=== PATIENT | female | born 1955 | race Caucasian/White ===

== ENCOUNTER 2020-12-07 19:21 | Emergency (ER) | payer OTHER ==
[~2020-12-07] VITALS: Ht 162.6 cm; Wt 136.1 kg
[2020-12-07] MEDS ORDERED: IRBESARTAN-HCT1 EAC1 PO (19:44)
[2020-12-07] MEDS ORDERED: METFORMIN HCL1000 M2 PO (19:44)
[2020-12-07] MEDS ORDERED: CARVEDILOL ER40 MG PO (19:44)
[2020-12-07] MEDS ORDERED: LIPITOR40 M1 PO (19:44)
[2020-12-07] MEDS ORDERED: SINGULAIR10 MG PO (19:45)
[2020-12-08] MEDS ORDERED: MOXIFLOXACIN H400 MG PO (00:11)
[2020-12-08] MEDS ORDERED: MUCINEX DM ER1 EAC1 PO (00:11)
== END 2020-12-08 00:24 | disposition home or self-care (01) ==
LOC: ER 19:21
DX: J45.901 Unspecified asthma with (acute) exacerbation (principal); R09.02 Hypoxemia; Z03.818 Encounter for observation for suspected exposure to other biological agents ruled out

== ENCOUNTER 2020-12-09 13:45 | Inpatient (IN) | payer OTHER ==
[~2020-12-09] VITALS: Ht 162.6 cm; Wt 136.1 kg
[~2020-12-09 13:45] MED LIST: CARVEDILOL ER40 MG PO; IRBESARTAN-HCT1 EAC1 PO; LIPITOR40 M1 PO; METFORMIN HCL1000 M2 PO; MOXIFLOXACIN H400 MG PO; MUCINEX DM ER1 EAC1 PO; SINGULAIR10 MG PO
[2020-12-15] MEDS ORDERED: XOPENEX0.63 MG/3 IH (09:26)
[2020-12-15] MEDS ORDERED: LIPITOR40 MG PO (09:27)
[2020-12-15] MEDS ORDERED: LOSARTAN-HCTZ1 EAC2 PO (09:27)
[2020-12-15] MEDS ORDERED: ADALAT CC30 MG PO (09:28)
[2020-12-15] MEDS ORDERED: DOXAZOSIN MESYLA2 MG PO (09:28)
[2020-12-15] MEDS ORDERED: TUSSIN MUC100 MG/5 M PO (09:30)
[2020-12-15] MEDS ORDERED: BENZONATATE200 M1 PO (09:30)
[2020-12-15] MEDS ORDERED: MEDROLPACK PO (09:31)
[2020-12-15] MEDS ORDERED: BUDESONIDE0.5 MG/2 M IH (09:33)
[2020-12-15] MEDS ORDERED: CEFDINIR300 MG PO (09:35)
== END 2020-12-15 10:37 | disposition home or self-care (01) | DRG 202 ==
LOC: ER 13:45 → ICU-2 18:34 → ICU 12-12 03:44 → SURH 12-12 15:58 → ICU 12-12 16:09 → SURH 12-12 17:45 → MEDJ 12-13 21:29
PROVIDERS: ADMIT Internal Medicine; ATTEND Internal Medicine
PROC: 3E0F7GC Introduction of Other Therapeutic Substance into Respiratory Tract, Via Natural or Artificial Opening (ICD-10-PCS; principal; 2020-12-09)
PROC: 3E0F7SF Introduction of Other Gas into Respiratory Tract, Via Natural or Artificial Opening (ICD-10-PCS; 2020-12-09)
PROC: 4A033R1 Measurement of Arterial Saturation, Peripheral, Percutaneous Approach (ICD-10-PCS; 2020-12-09)
PROC: 4A12X4Z Monitoring of Cardiac Electrical Activity, External Approach (ICD-10-PCS; 2020-12-09)
PROC: BW25ZZZ Computerized Tomography (CT Scan) of Chest, Abdomen and Pelvis (ICD-10-PCS; 2020-12-11)
DX: J45.901 Unspecified asthma with (acute) exacerbation (principal); J18.9 Pneumonia, unspecified organism; I10 Essential (primary) hypertension; E11.9 Type 2 diabetes mellitus without complications; E78.5 Hyperlipidemia, unspecified; E66.01 Morbid (severe) obesity due to excess calories; R06.02 Shortness of breath; Z20.822 Contact with and (suspected) exposure to COVID-19